=== PATIENT | female | born 1980 | race American Indian/Alaskan Native ===

== ENCOUNTER 2016-10-31 17:24 | Emergency (ER) | payer SELFPAY ==
--- NOTE | 2016-10-31 20:01 | XRay Report ---
FINAL REPORT PROCEDURE: XR ANKLE 3 RT TECHNIQUE: Right ankle radiographs, AP, lateral, and oblique views. CPT 35640 HISTORY: twisted right ankle. Pain. COMPARISON: No prior studies are available for comparison. FINDINGS: Fracture (s) and/or Dislocation(s): None . Alignment: Normal . Joint space(s): Normal . Soft tissues: There is mild soft tissue swelling medially and laterally.. Bone mineralization: Normal . Foreign bodies: None . Calcaneal spurring: None . IMPRESSION: There is mild soft tissue swelling medially and laterally. No other abnormality is seen..
[2016-10-31 21:20] VITALS: BP 130/55
--- NOTE | 2016-10-31 21:23 | Emergency Department Report ---
ED Lower Extremity HPI - General Chief Complaint: Extremity Injury, Lower Stated Complaint: SWOLLEN RT ANKLE Time Seen by Provider: 10/31/16 20:27 Source: patient Mode of arrival: Ambulatory Limitations: No Limitations - History of Present Illness Initial Comments: This is a 36-year-old female that presents with right ankle pain status post twisting on Sunday. Patient stated was at a gas station during occurrence and when she was walking to pay for gas she twisted her ankle inverting and heard a pop noise. Patient associated symptoms includes swelling and pain that is described as aching with a level of 7 out of 10. She denies any numbness or tingling this asymmetric extremity, redness, fever, chills, headache, shortness of breath, difficulty walking. NKDA. MANN Complaint: ankle injury (right) -: Sudden, days(s) (2) Injury: Ankle: Right Type of Injury: inversion Place: street/outdoors Severity: moderate Severity scale (0 -10): 7 Improves With: NSAID Worsens With: nothing Associated Symptoms: snap/pop sensation, able to partially bear weight (due to pain), ambulatory. denies: swelling, numbness, tingling, unable to bear weight - Related Data Previous Rx's Medication Instructions Recorded Last Taken Type Ibuprofen [Motrin 600 MG tab] 600 mg PO Q8H PRN 7 Days 10/31/16 Unknown Rx Allergies Allergy/AdvReac Type Severity Reaction Status Date / Time No Known Allergies Allergy Unverified 10/31/16 18:02 ED Review of Systems ROS: Stated complaint: SWOLLEN RT ANKLE Other details as noted in HPI Constitutional: denies: chills, fever Eyes: denies: eye pain, eye discharge, vision change ENT: denies: ear pain, throat pain Respiratory: denies: cough, shortness of breath, wheezing Cardiovascular: denies: chest pain, palpitations Endocrine: no symptoms reported Gastrointestinal: denies: abdominal pain, nausea, diarrhea Genitourinary: denies: urgency, dysuria, discharge Musculoskeletal: denies: back pain, joint swelling, arthralgia Skin: denies: rash, lesions Neurological: denies: headache, weakness, paresthesias Psychiatric: denies: anxiety, depression Hematological/Lymphatic: denies: easy bleeding, easy bruising ED Past Medical Hx - Past Medical History Previous Medical History?: No - Surgical History Past Surgical History?: No - Social History Smoking Status: Current Every Day Smoker Substance Use Type: Alcohol - Medications Home Medications: Home Medications Medication Instructions Recorded Confirmed Last Taken Type Ibuprofen [Motrin 600 MG tab] 600 mg PO Q8H PRN 7 Days 10/31/16 Unknown Rx ED Physical Exam - General Limitations: No Limitations General appearance: alert, in no apparent distress - Head Head exam: Present: atraumatic, normocephalic - Eye Eye exam: Present: normal appearance - ENT ENT exam: Present: mucous membranes moist - Neck Neck exam: Present: normal inspection - Respiratory Respiratory exam: Present: normal lung sounds bilaterally. Absent: respiratory distress - Cardiovascular Cardiovascular Exam: Present: regular rate, normal rhythm. Absent: systolic murmur, diastolic murmur, rubs, gallop - GI/Abdominal GI/Abdominal exam: Present: soft, normal bowel sounds - Extremities Exam Extremities exam: Present: normal inspection, full ROM, normal capillary refill. Absent: tenderness, pedal edema, joint swelling, calf tenderness - Expanded Lower Extremity Exam Right Hip exam: Present: normal inspection, full ROM. Absent: tenderness, swelling Upper Leg exam: Present: normal inspection, full ROM. Absent: tenderness, swelling Knee exam: Present: normal inspection, full ROM. Absent: tenderness, swelling Lower Leg exam: Present: normal inspection, full ROM. Absent: tenderness, swelling Ankle exam: Present: normal inspection, full ROM, tenderness. Absent: swelling , abrasion, laceration, ecchymosis, deformity, crepidus, dislocation, erythema, anterior draw sign Foot/Toe exam: Present: normal inspection, full ROM. Absent: tenderness, swelling Neuro vascular tendon exam: Present: no vascular compromise Gait: Positive: observed and limited by pain - Back Exam Back exam: Present: normal inspection - Neurological Exam Neurological exam: Present: alert, oriented X3, CN II-XII intact, normal gait - Psychiatric Psychiatric exam: Present: normal affect, normal mood - Skin Skin exam: Present: warm, dry, intact, normal color. Absent: rash ED Course Vital Signs 10/31/16 18:03 Temperature 98.3 F Pulse Rate 100 H Respiratory 20 Rate Blood Pressure 153/104 O2 Sat by Pulse 99 Oximetry Vital Signs 10/31/16 10/31/16 18:03 21:19 Temperature 98.3 F 98.4 F Pulse Rate 100 H 80 Respiratory 20 18 Rate Blood Pressure 153/104 Blood Pressure 130/55 [Left] O2 Sat by Pulse 99 Oximetry ED Lower Extremity MDM - Medical Decision Making ED course: This is a 36-year-old female that presents with right ankle strain 1- After my physical exam, an x-ray was obtained and dictated by Dr. Lake. Impression: There is mild soft tissue swelling medially and laterally. No other abnormality is seen. 2- Patient was informed of x-ray findings. Patient was instructed to follow-up with her PCP/orthopedic doctor in 3-5 days. 3- patient received ibuprofen 600 mg by mouth in ED. 4- patient also received Michael bandage to the left ankle and was instructed to rest, compress, elevate and ice the extremity. 5- at the time of discharge the patient does not seem toxic or ill in appearance. No signs of distress noted. Patient agrees to discharge treatment plan. No further questions noted by the patient. 6- ibuprofen 600 mg by mouth was prescribed at the time of discharge. Critical care attestation.: If time is entered above; I have spent that time in minutes in the direct care of this critically ill patient, excluding procedure time. ED Disposition Clinical Impression: Right ankle strain Qualifiers: Encounter type: initial encounter Qualified Code(s): S96.911A - Strain of unspecified muscle and tendon at ankle and foot level, right foot, initial encounter Disposition: DISCHARGED TO HOME OR SELFCARE Is pt being admited?: No Does the pt Need Aspirin: No Condition: Stable Instructions: Ankle Exercises (GEN), RICE Therapy (ED), Ibuprofen (By mouth) Additional Instructions: Follow-up with your primary care doctor/orthopedic in 3-5 days or if symptoms worsen report back to emergency room. Take ibuprofen as prescribed as needed. Rest, elevate, ice to the affected extremity. Prescriptions: Ibuprofen [Motrin 600 MG tab] 600 mg PO Q8H PRN 7 Days PRN Reason: Pain Referrals: PRIMARY CARE,MD [Primary Care Provider] - 3-5 Days [facility] [Outside] - 3-5 Days [facility] [Outside] - 3-5 Days Forms: Work/School Release Form(ED)
[2016-10-31] MEDS ORDERED: MOTRIN PO ONE (21:27)
== END 2016-10-31 21:48 | disposition home or self-care (01) ==
LOC: ED 17:24
DX: S96.911A Strain of unspecified muscle and tendon at ankle and foot level, right foot, initial encounter (principal); F17.200 Nicotine dependence, unspecified, uncomplicated; X58.XXXA Exposure to other specified factors, initial encounter; Y93.89 Activity, other specified; Y99.8 Other external cause status; Y92.89 Other specified places as the place of occurrence of the external cause
CPT/HCPCS: 99283